=== PATIENT | female | born 1990 | race Caucasian/White ===

== ENCOUNTER 2021-04-11 21:49 | Emergency (ER) | payer OTHER ==
[~2021-04-11 21:49] MED LIST: CYCLOBENZAPRINE10 MG PO; IBUPROFEN800 MG PO; MEDROL 4MG DOSEP4 MG PO
[2021-04-12] MEDS ORDERED: MUCINEX D ER 61 EACH PO (01:51)
[2021-04-12] MEDS ORDERED: AMOXICILLIN875 MG PO (01:51)
== END 2021-04-12 02:03 | disposition home or self-care (01) ==
LOC: FER 21:49
DX: J01.90 Acute sinusitis, unspecified (principal); B96.89 Other specified bacterial agents as the cause of diseases classified elsewhere; Z20.822 Contact with and (suspected) exposure to COVID-19
CPT/HCPCS: 99283; U0002